=== PATIENT | male | born 1950 | race Caucasian/White ===

== ENCOUNTER 2023-09-03 10:25 | Day surgery (SDC) | payer MEDICARE, OTHER ==
[~2023-09-03 10:25] MED LIST: Lidocaine 1% PF 2 ML SDV INJECT SCH
[2023-09-03] MEDS: Polymyxin B/Trimethoprim 10 ML Bottle EYERT SCH (12:11)
[2023-09-03] MEDS: Brimonidine 0.2% Ophth Soln 5 ML Bottle EYERT SCH (12:18)
[2023-09-03] MEDS: Phenylephrine 2.5% Ophth Soln 2 ML Bot EYERT SCH (12:21)
[2023-09-03] MEDS: Tropicamide 1% Ophth Soln 3 ML Bottle EYERT SCH (12:24)
[2023-09-03] MEDS: Proparacaine 0.5% Ophth Soln 15 ML Bottle EYEBOTH SCH (12:59)
[2023-09-03] MEDS ORDERED: Midazolam 1 MG/ML 2 ML SDV ONE (13:07)
[2023-09-03] MEDS ORDERED: Lidocaine 1% 5 ML VIAL ONE (13:07)
[2023-09-03] MEDS: Cefuroxime 10 MG/ML SYRINGE EYERT SCH (13:29)
[2023-09-03] MEDS: Pilocarpine 4% Ophth Soln 15 ML Bot EYERT SCH (13:30)
== END 2023-09-03 13:49 | disposition home or self-care (01) ==
LOC: JD.SDS 10:25
PROVIDERS: ATTEND Ophthalmology
DX: E11.36 Type 2 diabetes mellitus with diabetic cataract (principal); H25.813 Combined forms of age-related cataract, bilateral; H11.153 Pinguecula, bilateral; H57.813 Brow ptosis, bilateral; H02.831 Dermatochalasis of right upper eyelid; H02.834 Dermatochalasis of left upper eyelid; H35.372 Puckering of macula, left eye; I10 Essential (primary) hypertension; Z79.84 Long term (current) use of oral hypoglycemic drugs; Z79.899 Other long term (current) drug therapy
CPT/HCPCS: A9270-GY; J2250; J3490; V2632

== ENCOUNTER 2023-10-01 09:09 | Day surgery (SDC) | payer MEDICARE ==
[2023-10-01] MEDS: Polymyxin B/Trimethoprim 10 ML Bottle EYELF SCH (11:04)
[2023-10-01] MEDS: Brimonidine 0.2% Ophth Soln 5 ML Bottle EYELF SCH (11:21)
[2023-10-01] MEDS: Phenylephrine 2.5% Ophth Soln 2 ML Bot EYELF SCH (11:25)
[2023-10-01] MEDS: Tropicamide 1% Ophth Soln 3 ML Bottle EYELF SCH (11:28)
[2023-10-01] MEDS: Tetracaine HCl/PF 0.5% 4 ML Bottle EYEBOTH SCH (11:59)
[2023-10-01] MEDS: Lidocaine 1% PF 2 ML SDV INJECT SCH (12:51)
[2023-10-01] MEDS: Cefuroxime 10 MG/ML SYRINGE EYELF SCH (13:02)
[2023-10-01] MEDS: Pilocarpine 4% Ophth Soln 15 ML Bot EYELF SCH (13:02)
== END 2023-10-01 13:13 | disposition home or self-care (01) ==
LOC: JD.SDS 09:09
PROVIDERS: ATTEND Ophthalmology
DX: E11.36 Type 2 diabetes mellitus with diabetic cataract (principal); H57.813 Brow ptosis, bilateral; H02.831 Dermatochalasis of right upper eyelid; H02.834 Dermatochalasis of left upper eyelid; H43.813 Vitreous degeneration, bilateral; H35.372 Puckering of macula, left eye; H11.153 Pinguecula, bilateral; I10 Essential (primary) hypertension; Z79.84 Long term (current) use of oral hypoglycemic drugs; Z79.899 Other long term (current) drug therapy
CPT/HCPCS: A9270-GY; J3490

== ENCOUNTER 2024-03-07 06:42 | Emergency (ER) | payer MEDICARE, OTHER ==
[2024-03-07 07:50] LABS: BASOPHILS ABSOLUTE AUTO 0.1 K/mm3 (0.0-0.2); BASOPHILS PERCENT AUTO 0.7 % (0.0-1.0); EOSINOPHILS ABSOLUTE AUTO 0.2 K/mm3 (0.0-0.4); EOSINOPHILS PERCENT AUTO 2.4 % (0.0-6.0); HEMATOCRIT 56.8 % (42.0-52.0); HEMOGLOBIN 18.4 gm/dl (14.0-18.0); IMMATURE GRAN ABSOLUTE AUTO 0.05 K/mm3 (0.00-0.05); IMMATURE GRAN PERCENT AUTO 0.7 % (0.0-0.4); LYMPHOCYTES ABSOLUTE AUTO 0.6 K/mm3 (1.0-4.8); LYMPHOCYTES PERCENT AUTO 8.8 % (24.0-44.0); MEAN CORPUSCULAR HEMOGLOBIN 29.8 pg (28.0-32.0); MEAN CORPUSCULAR HGB CONC 32.4 g/dl (32.0-36.0); MEAN CORPUSCULAR VOLUME 91.9 fl (83.0-99.0); MEAN PLATELET VOLUME 9.9 fl (9.4-12.4); MONOCYTES ABSOLUTE AUTO 0.5 K/mm3 (0.0-0.8); MONOCYTES PERCENT AUTO 6.6 % (0.0-8.0); NEUTROPHILS ABSOLUTE AUTO 5.6 K/mm3 (1.8-7.7); NEUTROPHILS PERCENT AUTO 80.8 % (41.0-71.0); PLATELET COUNT,PLT 137 K/mm3 (150-400); RED BLOOD CELL COUNT 6.18 M/mm3 (4.52-5.90); WHITE BLOOD CELL COUNT,WBC 6.95 K/mm3 (3.9-11.3)
[2024-03-07 08:06] LABS: INR 1.05; PROTHROMBIN TIME 11.1 SECONDS (9.7-12.0)
[2024-03-07 08:07] LABS: PTT,PARTIAL THROMBOPLSTIN TIME 27.2 SECONDS (21.7-31.4)
[2024-03-07 08:14] LABS: ALBUMIN 3.6 g/dl (3.4-5.0); ANION GAP 10.5 (5-15); BILIRUBIN TOTAL 1.6 mg/dL (0.2-1.0); BUN/CREATININE RATIO 16.2 (14-18); C-REACTIVE PROTEIN 0.43 mg/dL (<0.30); CREATININE 1.3 mg/dL (0.7-1.3); EST CRCL DRUG DOSING (CG) 43.01 mL/min; MAGNESIUM 1.4 mg/dL (1.8-2.4); POTASSIUM,K 4.5 mEq/L (3.5-5.1); PROTEIN TOTAL,TP 7.1 g/dl (6.4-8.2)
[2024-03-07 08:15] LABS: APPEARANCE,URINE TURBID (Clear); BILIRUBIN,URINE NEGATIVE (Negative); COLOR,URINE RED (Yellow); GLUCOSE,URINE NEGATIVE (Negative); KETONES,URINE NEGATIVE (Negative); LEUKOCYTE ESTERASE,URINE NEGATIVE (Negative); NITRITE,URINE NEGATIVE (Negative); OCCULT BLOOD,URINE 3+ (Negative); PH,URINE 7.5 (5.0-8.0); PROTEIN,URINE 2+ (Negative)
[2024-03-07 08:16] LABS: LACTIC ACID 1.2 mmol/L (0.4-2.0)
[2024-03-07 08:20] LABS: MAGNESIUM 1.4 mg/dL (1.8-2.4)
[2024-03-07] MEDS: Piperacillin/Tazobactam 4.5 GM in Sodium Chloride 0.9% 100 ML IV ONE (09:15)
[2024-03-07] MEDS: Magnesium Sulfate/Water 2 GM in Premix Bag 1 BAG IV ONE (09:28)
[2024-03-07] MEDS ORDERED: Magnesium Sulfate (4.06 MEQ/ML) 5 GM/10 ML SDV IV ONE (09:30)
[2024-03-07 09:42] LABS: RBC,URINE TOO NUMEROUS TO CNT /hpf (0-5)
[2024-03-07 09:44] LABS: BACTERIA,URINE FEW /hpf (FEW); EPITHELIAL CELLS,URINE NOT SEEN /hpf (0-5); WBC,URINE 0-5 /hpf (0-5)
[2024-03-07 09:45] LABS: MUCUS,URINE NOT SEEN /hpf (FEW)
== END 2024-03-07 12:20 | disposition left against medical advice (07) ==
LOC: JD.ED 06:42
DX: R33.9 Retention of urine, unspecified (principal); Z79.84 Long term (current) use of oral hypoglycemic drugs; Z79.899 Other long term (current) drug therapy
CPT/HCPCS: 36415; 51702; 51798; 80053; 80307; 81001; 82550; 83605; 83690; 83735; 84145; 84153; 84484; 85025; 85610; 85730; 86140; 87040; 96365; 96366; 96367; 99283; J2543; J3475; J3490

== ENCOUNTER 2024-06-06 08:50 | Emergency (ER) | payer MEDICARE, OTHER ==
[2024-06-06 10:07] LABS: APPEARANCE,URINE SLT CLOUDY (Clear); BILIRUBIN,URINE NEGATIVE (Negative); COLOR,URINE YELLOW (Yellow); GLUCOSE,URINE NEGATIVE (Negative); KETONES,URINE TRACE (Negative); LEUKOCYTE ESTERASE,URINE 2+ (Negative); NITRITE,URINE POSITIVE (Negative); OCCULT BLOOD,URINE 3+ (Negative); PH,URINE 8.5 (5.0-8.0); PROTEIN,URINE 3+ (Negative)
[2024-06-06 10:25] LABS: AMORPHOUS SEDIMENT,URINE MANY /hpf (NOT SEEN); BACTERIA,URINE MANY /hpf (FEW); EPITHELIAL CELLS,URINE NOT SEEN /hpf (0-5); HYALINE CASTS,URINE 0-5 /lpf (0-5); MUCUS,URINE MODERATE /hpf (FEW); RBC,URINE >100 /hpf (0-5); WBC,URINE 75-100 /hpf (0-5)
== END 2024-06-06 10:51 | disposition home or self-care (01) ==
LOC: JD.ED 08:50
DX: T83.9XXA Unspecified complication of genitourinary prosthetic device, implant and graft, initial encounter (principal); N39.0 Urinary tract infection, site not specified
CPT/HCPCS: 51702; 81001; 87086; 99283

== ENCOUNTER 2024-06-20 17:55 | Emergency (ER) | payer MEDICARE, OTHER ==
[2024-06-20 19:54] LABS: APPEARANCE,URINE CLOUDY (Clear); BILIRUBIN,URINE NEGATIVE (Negative); COLOR,URINE YELLOW (Yellow); GLUCOSE,URINE NEGATIVE (Negative); KETONES,URINE NEGATIVE (Negative); LEUKOCYTE ESTERASE,URINE 3+ (Negative); NITRITE,URINE NEGATIVE (Negative); OCCULT BLOOD,URINE 3+ (Negative); PH,URINE 8.5 (5.0-8.0); PROTEIN,URINE 3+ (Negative)
[2024-06-20 20:03] LABS: BACTERIA,URINE MANY /hpf (FEW); EPITHELIAL CELLS,URINE NOT SEEN /hpf (0-5); MUCUS,URINE NOT SEEN /hpf (FEW); RBC,URINE >100 /hpf (0-5); WBC,URINE TOO NUMEROUS TO CNT /hpf (0-5)
[2024-06-20] MEDS: Levofloxacin 250 MG Tab PO ONE (20:57)
== END 2024-06-20 21:11 | disposition home or self-care (01) ==
LOC: JD.ED 17:55
DX: T83.9XXA Unspecified complication of genitourinary prosthetic device, implant and graft, initial encounter (principal); Z79.84 Long term (current) use of oral hypoglycemic drugs; Z79.899 Other long term (current) drug therapy
CPT/HCPCS: 51700; 51702; 81001; 87086; 99284; A9270

== ENCOUNTER 2024-08-20 09:03 | Inpatient (IN) | payer MEDICARE, OTHER ==
[2024-08-20] MEDS ORDERED: Sodium Chloride 0.9% 10 ML Syringe FLUSH PRN (09:40)
[2024-08-20 10:21] LABS: HEMATOCRIT 48.7 % (42.0-52.0); HEMOGLOBIN 15.8 gm/dl (14.0-18.0); MEAN CORPUSCULAR HGB CONC 32.4 g/dl (32.0-36.0); MEAN CORPUSCULAR VOLUME 86.2 fl (83.0-99.0); MEAN PLATELET VOLUME 10.2 fl (9.4-12.4); PLATELET COUNT,PLT 192 K/mm3 (150-400); RED BLOOD CELL COUNT 5.65 M/mm3 (4.52-5.90); WHITE BLOOD CELL COUNT,WBC 9.31 K/mm3 (3.9-11.3)
[2024-08-20 10:41] LABS: INR 1.09; PROTHROMBIN TIME 11.5 SECONDS (9.7-12.0)
[2024-08-20 10:44] LABS: A/G RATIO 0.7 (1-2); ALANINE AMINOTRANSFERASE,ALT 41 U/L (16-63); ALBUMIN 2.8 g/dl (3.4-5.0); ALKALINE PHOSPHATASE 58 U/L (46-116); ANION GAP 10.9 (5-15); ASPARTATE AMNIOTRANSFERASE,AST 126 U/L (15-37); BILIRUBIN TOTAL 0.8 mg/dL (0.2-1.0); BLOOD UREA NITROGEN,BUN 50 mg/dL (7-18); BUN/CREATININE RATIO 35.7 (14-18); C-REACTIVE PROTEIN 4.85 mg/dL (<0.30); CALCIUM 8.7 mg/dL (8.5-10.1); CARBON DIOXIDE,CO2 29 mEq/L (21-32); CHLORIDE,CL 99 mEq/L (98-107); CREATININE 1.4 mg/dL (0.7-1.3); ESTIMATED GFR 53 mL/min (>60); GLUCOSE RANDOM 190 mg/dL (70-99); POTASSIUM,K 4.9 mEq/L (3.5-5.1); PROTEIN TOTAL,TP 7.1 g/dl (6.4-8.2); SODIUM,NA 134 mEq/L (136-145)
[2024-08-20 10:49] LABS: LACTIC ACID 1.2 mmol/L (0.4-2.0)
[2024-08-20 10:52] LABS: TROPONIN I HIGH SENSITIVITY 80 pg/mL (<=76)
[2024-08-20 11:11] LABS: BAND PERCENT MAN 0 % (0-10); BASOPHILS PERCENT MAN 0 (0.2-1.2); EOSINOPHILS PERCENT MAN 0 % (0.8-7.0); LYMPHOCYTES % ATYPICAL MANUAL 0 %; LYMPHOCYTES PERCENT MAN 6 % (20-40); MONOCYTES PERCENT MAN 8 % (2-10); OVALOCYTES 1+ SLIGHT; PLATELET COUNT ESTIMATE ADEQUATE; POIKILOCYTOSIS 1+ SLIGHT
[2024-08-20] MEDS: Albuterol/Ipratropium 3.0-0.5 MG/3 ML Neb Soln NEB ONE (12:00)
[2024-08-20 15:27] LABS: APPEARANCE,URINE SLT CLOUDY (Clear); BILIRUBIN,URINE NEGATIVE (Negative); COLOR,URINE YELLOW (Yellow); GLUCOSE,URINE NEGATIVE (Negative); KETONES,URINE TRACE (Negative); LEUKOCYTE ESTERASE,URINE 1+ (Negative); NITRITE,URINE NEGATIVE (Negative); OCCULT BLOOD,URINE 2+ (Negative); PROTEIN,URINE 2+ (Negative); UROBILINOGEN,URINE 0.2 (0.2-1.0)
[2024-08-20 15:39] LABS: BACTERIA,URINE MANY /hpf (FEW); MUCUS,URINE FEW /hpf (FEW); RBC,URINE 40-50 /hpf (0-5); SQUAMOUS EPITHELIAL CELLS,UR 0-5 /hpf (0-5); WBC,URINE 50-75 /hpf (0-5)
[2024-08-20 15:42] LABS: AMORPHOUS SEDIMENT,URINE FEW /hpf (NOT SEEN)
[2024-08-20] MEDS: cefTRIAXone 1 GM, Lidocaine 1% 2.1 ML IM ONE (18:47)
[2024-08-20] MEDS ORDERED: Ondansetron 4 MG Tab.DIS PO PRN (19:39)
[2024-08-20] MEDS ORDERED: Naloxone 0.4 MG/ML SDV IVPUSH PRN (19:39)
[2024-08-20] MEDS ORDERED: Morphine 2 MG/ML SYRINGE IVPUSH PRN (19:39)
[2024-08-20] MEDS: oxyCODONE 5 MG Tab PO PRN (20:54)
[2024-08-20] MEDS: cefTRIAXone 2 GM Vial IVPUSH ONE (21:30)
[2024-08-21 05:27] LABS: BASOPHILS PERCENT AUTO 0.2 % (0.0-1.0); EOSINOPHILS ABSOLUTE AUTO 0.1 K/mm3 (0.0-0.4); HEMATOCRIT 49.6 % (42.0-52.0); HEMOGLOBIN 15.9 gm/dl (14.0-18.0); IMMATURE GRAN ABSOLUTE AUTO 0.06 K/mm3 (0.00-0.05); IMMATURE GRAN PERCENT AUTO 0.7 % (0.0-0.4); LYMPHOCYTES ABSOLUTE AUTO 0.5 K/mm3 (1.0-4.8); LYMPHOCYTES PERCENT AUTO 5.7 % (24.0-44.0); MEAN CORPUSCULAR HEMOGLOBIN 27.9 pg (28.0-32.0); MEAN CORPUSCULAR HGB CONC 32.1 g/dl (32.0-36.0); MEAN PLATELET VOLUME 10.3 fl (9.4-12.4); MONOCYTES ABSOLUTE AUTO 0.8 K/mm3 (0.0-0.8); MONOCYTES PERCENT AUTO 8.3 % (0.0-8.0); NEUTROPHILS ABSOLUTE AUTO 7.7 K/mm3 (1.8-7.7); NEUTROPHILS PERCENT AUTO 84.1 % (41.0-71.0); PLATELET COUNT,PLT 193 K/mm3 (150-400); WHITE BLOOD CELL COUNT,WBC 9.12 K/mm3 (3.9-11.3)
[2024-08-21 05:47] LABS: A/G RATIO 0.7 (1-2); ALBUMIN 2.9 g/dl (3.4-5.0); ANION GAP 11.7 (5-15); BILIRUBIN TOTAL 0.8 mg/dL (0.2-1.0); BUN/CREATININE RATIO 32.3 (14-18); C-REACTIVE PROTEIN 3.4 mg/dL (<0.30); CALCIUM 8.6 mg/dL (8.5-10.1); CREATININE 1.3 mg/dL (0.7-1.3); EST CRCL DRUG DOSING (CG) 47.32 mL/min; PHOSPHORUS 4.6 mg/dL (2.6-4.7); POTASSIUM,K 4.7 mEq/L (3.5-5.1); PROTEIN TOTAL,TP 7.1 g/dl (6.4-8.2)
[2024-08-21] MEDS ORDERED: hydrALAZINE 20 MG/ML SDV IVPUSH PRN (08:42)
[2024-08-21] MEDS ORDERED: Labetalol 100 MG/20 ML MDV IVPUSH PRN (08:42)
[2024-08-21] MEDS: Sennosides/Docusate Sodium 50-8.6 MG Tab PO PRN (09:17)
[2024-08-21] MEDS: cefTRIAXone 1 GM Vial IVPUSH SCH (09:17)
[2024-08-21] MEDS: Enoxaparin 40 MG/0.4 ML Syringe SUBCUT SCH (09:17)
[2024-08-21] MEDS: Furosemide 40 MG/4 ML VIAL IVPUSH ONE (11:05)
[2024-08-21] MEDS: Polyethylene Glycol 3350 Powder 17 GM Packet PO PRN (18:04)
[2024-08-21] MEDS: Acetaminophen 325 MG Tab PO PRN (20:15)
[2024-08-21] MEDS: Melatonin 3 MG Tab PO PRN (20:15)
[2024-08-22 06:13] LABS: ANION GAP 11.7 (5-15); BUN/CREATININE RATIO 37.7 (14-18); C-REACTIVE PROTEIN 2.87 mg/dL (<0.30); CALCIUM 8.6 mg/dL (8.5-10.1); CREATININE 1.3 mg/dL (0.7-1.3); EST CRCL DRUG DOSING (CG) 47.32 mL/min; POTASSIUM,K 4.7 mEq/L (3.5-5.1)
[2024-08-22] MEDS: Furosemide 40 MG/4 ML VIAL IVPUSH ONE (10:37)
[2024-08-22] MEDS ORDERED: Acetaminophen 325 MG Tab PO PRN (15:58)
[2024-08-22] MEDS: QUEtiapine 25 MG Tab PO SCH (20:36)
[2024-08-23] MEDS ORDERED: 50% Dextrose in Water 50 ML Syringe IVPUSH PRN (12:52)
[2024-08-23] MEDS ORDERED: Albuterol/Ipratropium 3.0-0.5 MG/3 ML Neb Soln NEB PRN (13:18)
[2024-08-23] MEDS: Furosemide 40 MG/4 ML VIAL IVPUSH ONE ×2 (14:02→20:34)
[2024-08-23] MEDS: oxyCODONE 5 MG Tab PO PRN (14:06)
[2024-08-23] MEDS: Insulin Lispro 100 Unit/ML 3 ML KwikPen SUBCUT SCH (18:30)
[2024-08-24 05:00] LABS: HEMATOCRIT 52.2 % (42.0-52.0); HEMOGLOBIN 16.4 gm/dl (14.0-18.0); MEAN CORPUSCULAR HEMOGLOBIN 27.6 pg (28.0-32.0); MEAN CORPUSCULAR HGB CONC 31.4 g/dl (32.0-36.0); MEAN CORPUSCULAR VOLUME 87.9 fl (83.0-99.0); MEAN PLATELET VOLUME 10.2 fl (9.4-12.4); PLATELET COUNT,PLT 197 K/mm3 (150-400); RED BLOOD CELL COUNT 5.94 M/mm3 (4.52-5.90); WHITE BLOOD CELL COUNT,WBC 7.78 K/mm3 (3.9-11.3)
[2024-08-24 05:22] LABS: A/G RATIO 0.6 (1-2); ANION GAP 8.7 (5-15); BILIRUBIN TOTAL 0.9 mg/dL (0.2-1.0); BUN/CREATININE RATIO 33.1 (14-18); CREATININE 1.3 mg/dL (0.7-1.3); EST CRCL DRUG DOSING (CG) 47.32 mL/min; PROTEIN TOTAL,TP 7.7 g/dl (6.4-8.2)
[2024-08-24 05:36] LABS: POTASSIUM,K 4.7 mEq/L (3.5-5.1)
[2024-08-24] MEDS: Furosemide 40 MG Tab PO SCH (09:11)
[2024-08-24] MEDS: hydrOXYzine HCl 50 MG Tab PO PRN (16:47)
[2024-08-25 05:19] LABS: A/G RATIO 0.6 (1-2); ALBUMIN 2.8 g/dl (3.4-5.0); ANION GAP 8.6 (5-15); BILIRUBIN TOTAL 1.1 mg/dL (0.2-1.0); BUN/CREATININE RATIO 35.5 (14-18); CREATININE 1.1 mg/dL (0.7-1.3); EST CRCL DRUG DOSING (CG) 55.92 mL/min; POTASSIUM,K 4.6 mEq/L (3.5-5.1); PROTEIN TOTAL,TP 7.3 g/dl (6.4-8.2)
[2024-08-25] MEDS: Fluticasone NASAL Spray 16 GM Bottle NASBOTH SCH (14:00)
[2024-08-28] MEDS: Nicotine 21 MG/24 Hr Patch TRDERM SCH (11:15)
[2024-08-29] MEDS: Furosemide 20 MG/2 ML VIAL IVPUSH ONE (09:13)
== END 2024-08-29 13:25 | DRG 698 ==
LOC: JD.ED 09:03 → JD.ICU 17:20 → JD.MS 08-28 18:19
PROVIDERS: ADMIT Student in an Organized Health Care Education/Training Program; ATTEND Student in an Organized Health Care Education/Training Program
PROC: 0T2BX0Z Change Drainage Device in Bladder, External Approach (ICD-10-PCS; principal; 2024-08-20)
DX: R53.1 Weakness (principal); T83.511A Infection and inflammatory reaction due to indwelling urethral catheter, initial encounter; R79.89 Other specified abnormal findings of blood chemistry; G92.8 Other toxic encephalopathy; I21.4 Non-ST elevation (NSTEMI) myocardial infarction; I10 Essential (primary) hypertension; J96.01 Acute respiratory failure with hypoxia; I50.31 Acute diastolic (congestive) heart failure; N17.9 Acute kidney failure, unspecified; I13.0 Hypertensive heart and chronic kidney disease with heart failure and stage 1 through stage 4 chronic kidney disease, or unspecified chronic kidney disease; N39.0 Urinary tract infection, site not specified; Z66 Do not resuscitate; C67.9 Malignant neoplasm of bladder, unspecified; J44.9 Chronic obstructive pulmonary disease, unspecified; F17.210 Nicotine dependence, cigarettes, uncomplicated; R29.6 Repeated falls; C61 Malignant neoplasm of prostate; F41.9 Anxiety disorder, unspecified; G47.00 Insomnia, unspecified; J32.0 Chronic maxillary sinusitis; E66.9 Obesity, unspecified; I45.10 Unspecified right bundle-branch block; R74.01 Elevation of levels of liver transaminase levels; Y84.6 Urinary catheterization as the cause of abnormal reaction of the patient, or of later complication, without mention of misadventure at the time of the procedure; N18.32 Chronic kidney disease, stage 3b; E11.22 Type 2 diabetes mellitus with diabetic chronic kidney disease; E11.65 Type 2 diabetes mellitus with hyperglycemia; K76.1 Chronic passive congestion of liver; Z91.81 History of falling; Z79.84 Long term (current) use of oral hypoglycemic drugs; Z98.1 Arthrodesis status; Z68.34 Body mass index [BMI] 34.0-34.9, adult
CPT/HCPCS: 36415; 70450; 71045; 80053; 81001; 83605; 84484 ×2; 85007; 85027; 85610; 86140; 87040 ×2; 87086; 93005; 94640; 99285; C1758; 80048; 82947; 83735; 83880; 84100; 85025; 93010; 93306; 94761; 94762; 97116-GP; 97162-GP; 97530-GP; 99223; 99231; 99232; 99233; 99239; A9270-GY; J0696; J1650; J1815; J1940; J3490; J7620-GY